=== PATIENT | female | born 1950 | race Asian ===

== ENCOUNTER 2020-07-16 10:01 | Outpatient (CLI) | payer MEDICARE, OTHER ==
[2020-07-16 11:56] LABS: BASOPHILS % (AUTO) 0.9 %; EOSINOPHILS # (AUTO) 0.1 10^3/uL (0.0-0.7); EOSINOPHILS % (AUTO) 1.5 %; HGB - HEMOGLOBIN 13.2 g/dL (12.0-16.0); LYMPHOCYTES # (AUTO) 1.5 10^3/uL (1.5-3.5); LYMPHOCYTES % (AUTO) 32.5 %; MEAN CORPUSCULAR HEMOGLOBIN 30.7 pg (27.0-31.0); MEAN CORPUSCULAR HGB CONC 33.1 g/dL (32.0-36.0); MEAN CORPUSCULAR VOLUME 92.8 fL (81.0-99.0); MEAN PLATELET VOLUME 9.4 fL (7.9-10.8); MONOCYTES # (AUTO) 0.3 10^3/uL (0.0-1.0); MONOCYTES % (AUTO) 5.6 %; NEUTROPHILS # (AUTO) 2.8 10^3/uL (1.5-6.6); NEUTROPHILS % (AUTO) 59.3 %; PLT - PLATELET COUNT 275 10^3/uL (130-450); RED CELL DISTRIBUTION WIDTH 12.4 % (12.0-15.0); WHITE BLOOD COUNT 4.7 x10^3/uL (4.8-10.8)
[2020-07-16 12:45] LABS: ALBUMIN 4.4 g/dL (3.2-5.5); ALBUMIN/GLOBULIN RATIO 1.1 (1.0-2.2); ALKALINE PHOSPHATASE 60 IU/L (42-121); ALT ALANINE AMINOTRANSFERASE 16 IU/L (10-60); AST ASPARTATE AMINOTRANSFERASE 26 IU/L (10-42); BILIRUBIN,TOTAL 0.7 mg/dL (0.2-1.0); BUN - BLOOD UREA NITROGEN 14 mg/dL (6-20); CALCIUM 9.2 mg/dL (8.5-10.3); CARBON DIOXIDE - CO2 27 mmol/L (21-32); CHLORIDE 101 mmol/L (101-111); CHOL/HDL RATIO 2.7 (<4.4); CHOLESTEROL 207 mg/dL; CREATININE 0.7 mg/dL (0.4-1.0); GLUCOSE 115 mg/dL (70-100); HDL CHOLESTEROL 76 mg/dL; LDL CHOLESTEROL,CALCULATED 111 mg/dL; LDL/HDL RATIO 1.5 (<4.4); SODIUM 138 mmol/L (135-145); TOTAL PROTEIN 8.3 g/dL (6.7-8.2); VLDL CHOLESTEROL 20 mg/dL
== END 2020-07-16 23:59 | disposition home or self-care (01) ==
LOC: LAB.WCP 10:01
PROVIDERS: ATTEND Nurse Practitioner Family
DX: I10 Essential (primary) hypertension (principal); R00.1 Bradycardia, unspecified
CPT/HCPCS: 36415; 80053; 80061; 83721; 84443; 85025

== ENCOUNTER 2020-07-30 08:45 | Outpatient (CLI) | payer MEDICARE, OTHER ==
[2020-07-30 13:05] LABS: CALCIUM 9.2 mg/dL (8.5-10.3); CREATININE 0.8 mg/dL (0.4-1.0)
== END 2020-07-30 23:59 | disposition home or self-care (01) ==
LOC: LAB.WCP 08:45
PROVIDERS: ATTEND Nurse Practitioner Family
DX: I10 Essential (primary) hypertension (principal)
CPT/HCPCS: 36415; 80048

== ENCOUNTER 2020-08-14 08:00 | Outpatient (CLI) | payer MEDICARE, OTHER ==
[2020-08-14 12:20] LABS: CALCIUM 9.4 mg/dL (8.5-10.3); CREATININE 0.8 mg/dL (0.4-1.0)
== END 2020-08-14 23:59 | disposition home or self-care (01) ==
LOC: LAB.WCP 08:00
PROVIDERS: ATTEND Nurse Practitioner Family
DX: E87.6 Hypokalemia (principal)
CPT/HCPCS: 36415; 80048

== ENCOUNTER 2021-10-14 07:00 | Outpatient (CLI) | payer MEDICARE, OTHER ==
[2021-10-14 18:44] LABS: BASOPHILS % (AUTO) 0.7 %; EOSINOPHILS # (AUTO) 0.1 10^3/uL (0.0-0.7); EOSINOPHILS % (AUTO) 2.1 %; HCT - HEMATOCRIT 38.7 % (37.0-47.0); HGB - HEMOGLOBIN 12.9 g/dL (12.0-16.0); LYMPHOCYTES # (AUTO) 1.8 10^3/uL (1.5-3.5); LYMPHOCYTES % (AUTO) 31.3 %; MEAN CORPUSCULAR HEMOGLOBIN 30.7 pg (27.0-31.0); MEAN CORPUSCULAR HGB CONC 33.3 g/dL (32.0-36.0); MEAN CORPUSCULAR VOLUME 92.1 fL (81.0-99.0); MEAN PLATELET VOLUME 9.3 fL (7.9-10.8); MONOCYTES # (AUTO) 0.3 10^3/uL (0.0-1.0); MONOCYTES % (AUTO) 4.3 %; NEUTROPHILS # (AUTO) 3.5 10^3/uL (1.5-6.6); NEUTROPHILS % (AUTO) 61.3 %; PLT - PLATELET COUNT 274 10^3/uL (130-450); RED CELL DISTRIBUTION WIDTH 12.3 % (12.0-15.0); WHITE BLOOD COUNT 5.8 x10^3/uL (4.8-10.8)
[2021-10-14 19:20] LABS: ALBUMIN 4.2 g/dL (3.2-5.5); ALKALINE PHOSPHATASE 51 IU/L (42-121); ALT ALANINE AMINOTRANSFERASE 21 IU/L (10-60); AST ASPARTATE AMINOTRANSFERASE 28 IU/L (10-42); BILIRUBIN,TOTAL 0.6 mg/dL (0.2-1.0); BUN - BLOOD UREA NITROGEN 18 mg/dL (6-20); CALCIUM 9.5 mg/dL (8.5-10.3); CARBON DIOXIDE - CO2 30 mmol/L (21-32); CHLORIDE 100 mmol/L (101-111); CHOL/HDL RATIO 3.2 (<4.4); CHOLESTEROL 229 mg/dL; CREATININE 0.8 mg/dL (0.4-1.0); GFR - MDRD 71 (>89); GLUCOSE 105 mg/dL (70-100); HDL CHOLESTEROL 71 mg/dL; LDL CHOLESTEROL,CALCULATED 129 mg/dL; LDL/HDL RATIO 1.8 (<4.4); POTASSIUM 3.8 mmol/L (3.5-5.0); SODIUM 138 mmol/L (135-145); TOTAL PROTEIN 8.3 g/dL (6.7-8.2); TRIGLYCERIDES 145 mg/dL; VLDL CHOLESTEROL 29 mg/dL
[2021-10-14 19:44] LABS: THYROID STIMULATING HORMONE 2.29 uIU/mL (0.34-5.60)
== END 2021-10-14 23:59 | disposition home or self-care (01) ==
LOC: LAB.WCP 07:00
PROVIDERS: ATTEND Family Medicine
DX: E87.6 Hypokalemia (principal); I10 Essential (primary) hypertension
CPT/HCPCS: 36415; 80053; 80061; 83721; 84443; 85025

== ENCOUNTER 2021-12-10 13:46 | Outpatient (CLI) | payer MEDICARE, OTHER ==
--- NOTE | 2021-12-11 11:28 | Mammography Report ---
BILATERAL DIGITAL SCREENING MAMMOGRAM 3D/2D: 12/10/2021 CLINICAL: Baseline Exam. Routine screening. No prior exams were available for comparison. There are scattered fibroglandular elements in both br easts. No significant masses, calcifications, or other findings are seen in either breast. IMPRESSION: NEGATIVE There is no mammographic evidence of malignancy. A 1 year screening mammogram is recommended. This exam was interpreted at Station ID: [id number]. NOTE: For mammograms, a report in lay terms will be sent to the patient. Approximately 15% of breast malignancies will not be visualized mammographically. In the management of a palpable breast mass, a negative mammogram must not discourage biopsy of a clinically suspicious lesion. Electronically Signed By: Cedric wen/ortiz:12/10/2021 16:53:12 ACR BI-RADS Category 1: Negative 3341F PARENCHYMAL PATTERN: (A) - The breast(s) demonstrate(s) scattered fibroglandular densities. BI-RADS CATEGORY: (1) - 1 RECOMMENDATION: (ANNUAL) - Recommend routine annual screening mammography. [id number] 1 year screening LATERALITY: (B)
== END 2021-12-10 13:47 | disposition home or self-care (01) ==
LOC: DI.N 13:46
PROVIDERS: ATTEND Family Medicine
DX: Z12.31 Encounter for screening mammogram for malignant neoplasm of breast (principal)

== ENCOUNTER 2023-09-24 10:22 | Outpatient (CLI) | payer MEDICARE, OTHER ==
[2023-09-24 17:42] LABS: BASOPHILS # (AUTO) 0.1 10^3/uL (0.0-0.1); BASOPHILS % (AUTO) 1.2 %; EOSINOPHILS # (AUTO) 0.4 10^3/uL (0.0-0.7); EOSINOPHILS % (AUTO) 7.7 %; HGB - HEMOGLOBIN 12.4 g/dL (12.0-16.0); LYMPHOCYTES # (AUTO) 2.1 10^3/uL (1.5-3.5); LYMPHOCYTES % (AUTO) 41.9 %; MEAN CORPUSCULAR HEMOGLOBIN 31.6 pg (27.0-31.0); MEAN CORPUSCULAR HGB CONC 33.5 g/dL (32.0-36.0); MEAN CORPUSCULAR VOLUME 94.1 fL (81.0-99.0); MONOCYTES # (AUTO) 0.4 10^3/uL (0.0-1.0); MONOCYTES % (AUTO) 8.5 %; NEUTROPHILS % (AUTO) 40.7 %; PLT - PLATELET COUNT 286 10^3/uL (130-450); RED BLOOD COUNT 3.93 10^6/uL (4.20-5.40); RED CELL DISTRIBUTION WIDTH 12.7 % (12.0-15.0); WHITE BLOOD COUNT 4.9 x10^3/uL (4.8-10.8)
[2023-09-24 17:59] LABS: ALBUMIN 4.2 g/dL (3.2-5.5); ALBUMIN/GLOBULIN RATIO 1.2 (1.0-2.2); ALKALINE PHOSPHATASE 53 IU/L (42-121); ALT ALANINE AMINOTRANSFERASE 14 IU/L (10-60); AST ASPARTATE AMINOTRANSFERASE 22 IU/L (10-42); BILIRUBIN,TOTAL 0.5 mg/dL (0.2-1.0); BUN - BLOOD UREA NITROGEN 23 mg/dL (6-20); CALCIUM 9.3 mg/dL (8.5-10.3); CARBON DIOXIDE - CO2 31 mmol/L (21-32); CHLORIDE 102 mmol/L (101-111); CHOL/HDL RATIO 3.7 (<4.4); CHOLESTEROL 205 mg/dL; GFR - MDRD 55 (>89); GLUCOSE 117 mg/dL (74-104); HDL CHOLESTEROL 55 mg/dL; LDL CHOLESTEROL,CALCULATED 112 mg/dL; POTASSIUM 3.8 mmol/L (3.5-4.5); SODIUM 140 mmol/L (135-145); TOTAL PROTEIN 7.8 g/dL (6.4-8.9); TRIGLYCERIDES 191 mg/dL (48-352); VLDL CHOLESTEROL 38 mg/dL
[2023-09-24 18:12] LABS: THYROID STIMULATING HORMONE 2.22 uIU/mL (0.34-5.60)
[2023-09-24 19:55] LABS: ESTIMATED AVERAGE GLUCOSE 143 mg/dL (70-100); HEMOGLOBIN A1c% 6.6 % (4.27-6.07)
== END 2023-09-24 10:23 | disposition home or self-care (01) ==
LOC: LAB.N 10:22
PROVIDERS: ATTEND Family Medicine
DX: I10 Essential (primary) hypertension (principal); M17.12 Unilateral primary osteoarthritis, left knee; R73.9 Hyperglycemia, unspecified; E87.6 Hypokalemia
CPT/HCPCS: 36415; 80053; 80061; 83036; 83721; 84443; 85025

== ENCOUNTER 2023-11-11 12:47 | Outpatient (CLI) | payer MEDICARE, OTHER ==
--- NOTE | 2023-11-12 09:42 | Mammography Report ---
BILATERAL DIGITAL SCREENING MAMMOGRAM 3D/2D: 11/11/2023 CLINICAL: Routine screening. Comparison is made to exam dated: 12/10/2021 mammogram - [facility]. There are scattered areas of fibroglandular density in both breasts (category b / 25%-50% glandular t issue). No significant masses, calcifications, or other findings are seen in either breast. There has been no significant interval change. IMPRESSION: NEGATIVE There is no mammographic evidence of malignancy. A 1 year screening mammogram is recommended. Based on the Tyrer Cuzick model (a risk assessment model) the patient's lifetime risk is 2.6% and her 10 year risk is 1.9%. According to the ACR, ACS, and NCCN guidelines, an annual breast MRI exam katherine g with mammogram is recommended if the patient's lifetime risk is 20% or greater. This exam was interpreted at Station ID: [id number]. NOTE: For mammograms, a report in lay terms will be sent to the patient. Approximately 15% of breast malignancies will not be visualized mammographically. In the management of a palpable breast mass, a negative mammogram must not discourage biopsy of a clinically suspicious lesion. Electronically Signed By: Yocasta [email or web address]/ortiz:11/11/2023 17:17:50 ACR BI-RADS Category 1: Negative 3341F PARENCHYMAL PATTERN: (A) - The breast(s) demonstrate(s) scattered fibroglandular densities. BI-RADS CATEGORY: (1) - 1 Mammogram [id number] 1 year screening LATERALITY: (B)
== END 2023-11-11 12:48 | disposition home or self-care (01) ==
LOC: DI.N 12:47
PROVIDERS: ATTEND Family Medicine
DX: Z12.31 Encounter for screening mammogram for malignant neoplasm of breast (principal); R92.323 Mammographic fibroglandular density, bilateral breasts

== ENCOUNTER 2023-11-27 08:53 | Outpatient (CLI) | payer MEDICARE, OTHER ==
[2023-11-27 12:48] LABS: CALCIUM 9.8 mg/dL (8.5-10.3)
== END 2023-11-27 08:54 | disposition home or self-care (01) ==
LOC: LAB.N 08:53
PROVIDERS: ATTEND Family Medicine
DX: E87.6 Hypokalemia (principal); E11.65 Type 2 diabetes mellitus with hyperglycemia
CPT/HCPCS: 36415; 80048

== ENCOUNTER 2023-12-25 13:18 | Outpatient (CLI) | payer MEDICARE, OTHER ==
--- NOTE | 2023-12-25 17:31 | DEXA Report ---
PROCEDURE: Dexa Spine and/or Hip INDICATIONS: POST MENOPAUSAL TECHNIQUE: Dual energy x-ray absorptiometry (DEXA) was performed in the regions detailed below. COMPARISON: None. FINDINGS: Lumbar Spine: Bone Mineral Density 1.404 g/cm/cm,T score 1.9. Normal Left Femoral Neck: Bone Mineral Density 1.891 g/cm/cm, T score -1.1. Osteopenia Left Total Hip: Bone Mineral Density 0.975 g/cm/cm,T score -0.3. Normal (T score greater or equal to -1.0: NORMAL) (T score from -1.1 to -2.4: OSTEOPENIA) (T score less than or equal to -2.5 to: OSTEOPOROSIS) IMPRESSION: Osteopenic left femoral neck Patients with diagnosis of osteoporosis or osteopenia should have regular bone mineral density assess ment. For those eligible for Medicare, routine testing is allowed once every 2 years. Testing frequ ency can be increased for patients who have rapidly progressing disease or for those who are receivin g medical therapy to restore bone mass. Reviewed by: Miguel Sorto MD on 12/25/2023 4:30 PM SUSHIL Approved by: Miguel Sorto MD on 12/25/2023 4:30 PM AKGAVI Station ID: [id number]
== END 2023-12-25 13:19 | disposition home or self-care (01) ==
LOC: DI 13:18
PROVIDERS: ATTEND Family Medicine
DX: M85.88 Other specified disorders of bone density and structure, other site (principal); Z78.0 Asymptomatic menopausal state

== ENCOUNTER 2024-01-14 15:26 | Outpatient (CLI) | payer MEDICARE, OTHER ==
--- NOTE | 2024-01-14 17:11 | XRAY Report ---
PROCEDURE: Chest 2V INDICATIONS: COUGH AND SHORTNESS OF BREATH TECHNIQUE: 2 views of the chest were acquired. COMPARISON: None. FINDINGS: Surgical changes and devices: None. Lungs and pleura: No pleural effusions or pneumothorax. Lingular consolidation, best appreciated on the lateral view. Additional right upper lobe patchy consolidation. Hyperexpansion of the lungs with flattening of the diaphragms suggestive of COPD. Mediastinum: Mediastinal contours appear normal. Heart size is normal. Bones and chest wall: No suspicious bony lesions. Overlying soft tissues appear unremarkable. Dege nerative changes of the spine. IMPRESSION: 1.Lingular consolidation, best seen on the lateral view. Differential includes infection and/or malig morteza. Recommend a contrast enhanced CT of the chest for further evaluation. 2.Additional right upper lobe patchy consolidation which may reflect fibrosis, aspiration and/or infe ction. 3.Hyperexpansion of the lungs with flattening of the diaphragms suggestive of COPD. Reviewed by: Serene Mendez MD on 01/14/2024 5:09 PM PDT Approved by: Serene Mendez MD on 01/14/2024 5:09 PM PDT Station ID: [id number]
== END 2024-01-14 15:27 | disposition home or self-care (01) ==
LOC: DI.N 15:26
PROVIDERS: ATTEND Family Medicine
DX: R05.9 Cough, unspecified (principal); R06.02 Shortness of breath; R91.8 Other nonspecific abnormal finding of lung field; R00.1 Bradycardia, unspecified
CPT/HCPCS: 36415; 80053; 83880; 84443; 85025

== ENCOUNTER 2024-01-14 15:29 | Outpatient (CLI) | payer MEDICARE, OTHER ==
[2024-01-14 20:23] LABS: BASOPHILS % (AUTO) 0.5 %; EOSINOPHILS # (AUTO) 0.2 10^3/uL (0.0-0.7); EOSINOPHILS % (AUTO) 3.2 %; HCT - HEMATOCRIT 39.1 % (37.0-47.0); HGB - HEMOGLOBIN 12.3 g/dL (12.0-16.0); LYMPHOCYTES # (AUTO) 2.7 10^3/uL (1.5-3.5); LYMPHOCYTES % (AUTO) 48.1 %; MEAN CORPUSCULAR HEMOGLOBIN 29.4 pg (27.0-31.0); MEAN CORPUSCULAR HGB CONC 31.5 g/dL (32.0-36.0); MEAN CORPUSCULAR VOLUME 93.5 fL (81.0-99.0); MEAN PLATELET VOLUME 9.3 fL (7.9-10.8); MONOCYTES # (AUTO) 0.4 10^3/uL (0.0-1.0); MONOCYTES % (AUTO) 7.6 %; NEUTROPHILS # (AUTO) 2.3 10^3/uL (1.5-6.6); NEUTROPHILS % (AUTO) 40.4 %; PLT - PLATELET COUNT 374 10^3/uL (130-450); RED BLOOD COUNT 4.18 10^6/uL (4.20-5.40); RED CELL DISTRIBUTION WIDTH 11.9 % (12.0-15.0); WHITE BLOOD COUNT 5.7 x10^3/uL (4.8-10.8)
[2024-01-14 20:35] LABS: ALBUMIN 4.7 g/dL (3.2-5.5); ALBUMIN/GLOBULIN RATIO 1.2 (1.0-2.2); BILIRUBIN,TOTAL 0.5 mg/dL (0.2-1.0); CALCIUM 10.4 mg/dL (8.5-10.3); CREATININE 1.1 mg/dL (0.6-1.3); POTASSIUM 3.9 mmol/L (3.5-4.5); TOTAL PROTEIN 8.6 g/dL (6.4-8.9)
[2024-01-14 20:46] LABS: THYROID STIMULATING HORMONE 1.81 uIU/mL (0.34-5.60)
== END 2024-01-14 15:30 | disposition home or self-care (01) ==
LOC: LAB.N 15:29
PROVIDERS: ATTEND Family Medicine
DX: R06.02 Shortness of breath (principal); R00.1 Bradycardia, unspecified; R05.9 Cough, unspecified
CPT/HCPCS: 36415; 80053; 83880; 84443; 85025

== ENCOUNTER 2024-01-25 08:35 | Outpatient (CLI) | payer MEDICARE, OTHER ==
--- NOTE | 2024-01-25 11:44 | XRAY Report ---
PROCEDURE: Chest 2V INDICATIONS: PNEUMONIA TECHNIQUE: 2 views of the chest were obtained. COMPARISON: None. FINDINGS: Surgical changes and devices: None. Lungs and pleura: Persistent but slightly improved right upper lobe pulmonary infiltrate. Underlying hyperinflation and chronic interstitial changes. Mediastinum: Mediastinal contours appear normal. Heart size is enlarged. Bones and chest wall: No suspicious bony lesions. Overlying soft tissues appear unremarkable. IMPRESSION: Persistent but improving right upper lobe pulmonary infiltrate Reviewed by: Miguel Sorto MD on 01/25/2024 10:43 AM SUSHIL Approved by: Miguel Sorto MD on 01/25/2024 10:43 AM AKGAVI Station ID: [id number]
== END 2024-01-25 08:36 | disposition home or self-care (01) ==
LOC: DI.N 08:35
PROVIDERS: ATTEND Nurse Practitioner
DX: J18.9 Pneumonia, unspecified organism (principal)

== ENCOUNTER 2024-03-10 12:57 | Outpatient (CLI) | payer MEDICARE, OTHER | END 2024-03-10 12:58 | disposition home or self-care (01) | LOC: DI 12:57 | PROVIDERS: ATTEND Nurse Practitioner | DX: I27.20 Pulmonary hypertension, unspecified (principal); I07.1 Rheumatic tricuspid insufficiency | CPT/HCPCS: 93307 ==

== ENCOUNTER 2024-05-27 09:04 | Outpatient (CLI) | payer MEDICARE, OTHER ==
[2024-05-27 12:35] LABS: HCT - HEMATOCRIT 38.1 % (37.0-47.0); HGB - HEMOGLOBIN 12.3 g/dL (12.0-16.0); MEAN CORPUSCULAR HEMOGLOBIN 30.2 pg (27.0-31.0); MEAN CORPUSCULAR HGB CONC 32.3 g/dL (32.0-36.0); MEAN CORPUSCULAR VOLUME 93.6 fL (81.0-99.0); MEAN PLATELET VOLUME 9.4 fL (7.9-10.8); RED BLOOD COUNT 4.07 10^6/uL (4.20-5.40); RED CELL DISTRIBUTION WIDTH 12.1 % (12.0-15.0)
[2024-05-27 12:58] LABS: CALCIUM 9.9 mg/dL (8.5-10.3); CREATININE 0.9 mg/dL (0.6-1.3); POTASSIUM 3.7 mmol/L (3.5-4.5)
[2024-05-27 12:59] LABS: ESTIMATED AVERAGE GLUCOSE 151 mg/dL (70-100); HEMOGLOBIN A1c% 6.9 % (4.27-6.07)
== END 2024-05-27 09:05 | disposition home or self-care (01) ==
LOC: LAB.N 09:04
PROVIDERS: ATTEND Family Medicine
DX: E11.22 Type 2 diabetes mellitus with diabetic chronic kidney disease (principal); N18.31 Chronic kidney disease, stage 3a; E11.65 Type 2 diabetes mellitus with hyperglycemia
CPT/HCPCS: 36415; 80048; 83036; 85027